=== PATIENT | male | born 1985 | race Two or more races ===

== ENCOUNTER 2020-12-07 20:50 | Emergency (ER) | payer OTHER ==
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
--- NOTE | 2020-12-07 21:34 | XR ---
EXAMINATION TYPE: XR chest 1V portable DATE OF EXAM: 12/07/2020 COMPARISON: NONE HISTORY: Pain TECHNIQUE: Single view FINDINGS: Heart and mediastinum are normal. Lungs are clear. Diaphragm is normal. Bony thorax is inta ct. IMPRESSION: Normal chest. Normal heart.
--- NOTE | 2020-12-07 21:34 | XR ---
EXAMINATION TYPE: XR thoracic spine complete DATE OF EXAM: 12/07/2020 COMPARISON: NONE HISTORY: Pain TECHNIQUE: 3 views FINDINGS: Thoracic vertebra have normal alignment. There is no compression fracture. Posterior elemen ts are intact. There is no paraspinal mass. IMPRESSION: Negative thoracic spine exam. No fracture.
[2020-12-07 22:05] VITALS: RESP 18
[2020-12-07 22:41] VITALS: BP 132/84; PULSE 82; TEMP 98.4
== END 2020-12-07 22:45 | disposition home or self-care (01) ==
LOC: SUPCPDRO 20:50 → EC 20:50
DX: M54.6 Pain in thoracic spine (principal); V43.62XA Car passenger injured in collision with other type car in traffic accident, initial encounter; Y92.410 Unspecified street and highway as the place of occurrence of the external cause
CPT/HCPCS: 71045; 72072; 99284